=== PATIENT | female | born 1950 | race Caucasian/White ===

== ENCOUNTER 2021-02-09 10:29 | Outpatient (REF) | payer MEDICARE, SELFPAY | END 2021-02-09 10:30 | disposition home or self-care (01) | LOC: HO.SCI 10:29 | PROVIDERS: Visit Provider Internal Medicine Nephrology | DX: Z13.89 Encounter for screening for other disorder (principal) ==

== ENCOUNTER 2022-01-22 07:34 | Day surgery (SDC) | payer MEDICARE, BC, SELFPAY ==
[2022-01-17 09:14] VITALS: BMI 27.3
--- NOTE | 2022-01-19 09:34 | MHC.SHP ---
Pre-Procedural Eval Section A Date of Service: 01/19/22 The patient is an INPATIENT: No Changes since office visit: No Cold of Flu in the past 2 weeks, No New Medical Problems, No Changes in Medication and No Patient answered all questions The History & Physical has been completed within 30 days and I have reviewed it.: Yes Section B Chief Complaint: Age-related nuclear cataract, right eye Allergies: Allergies Allergy/AdvReac Type Severity Reaction Status Date / Time No Known Allergies Allergy Verified 01/17/22 09:00 Plan Diagnosis/Plan: Unchanged I have reviewed the history and physical and performed a pertinent physical examination on my patient. No changes have occurred unless specified.
[2022-01-22 09:02] VITALS: BP 143/66; PULSE 64; RESP 16; TEMP 36.8; O2SAT 99
[2022-01-22] MEDS: Tetracaine HCl/PF 0.5% Oph Sol 4 ML DROPS 1 DROP EYE-RIGHT (09:05)
[2022-01-22] MEDS: Tropicamide 1 % Ophth Sol 3 ML BTL 1 DROP EYE-RIGHT ×3 (09:05→09:15)
[2022-01-22] MEDS: Phenylephrine HCL 2.5% Oph SoL 2 ML BOTTLE 1 DROP EYE-RIGHT ×3 (09:08→09:18)
[2022-01-22] MEDS: Lactated Ringers 500 ML 50 ML IVCONT (09:18)
--- NOTE | 2022-01-22 09:22 | HO.ANESPROP2 ---
HPI - Anesthesia Eval Consult details Narrative: Right eye cataract [facility] Past Medical History Medical History (Updated 01/17/22 @ 09:16 by Veronica Ross RN) Cataract Elevated cholesterol GERD (gastroesophageal reflux disease) HTN (hypertension) Hx of myocardial infarction Hx of renal calculi Hypothyroidism Pacemaker Family History Family history of problems with anesthesia: No Surgical History Surgical History (Updated 01/17/22 @ 09:00 by Veronica Ross RN) AICD (automatic cardioverter/defibrillator) present Hx of appendectomy Hx of colonoscopy S/P LISHA (total abdominal hysterectomy) History of Problems with Anesthesia: No Social History Social History Are you a primary district manager primary care sales to a significant other at home: No Do you presently have visiting nurse or other home services: No Patient Tobacco Use Status: Former Tobacco user Quit Date: 1988 Tobacco use type: Cigarette Use of substances other than those prescribed or required for medical reasons: No Have you been hit, kicked, punched, or otherwise hurt by someone within the past year? If so, by whom?: No Are you DNR?: No Advance Directives: No Advance Directives Information Provided: Yes Advance Directives on File: No Recently lost weight without trying: No Meds Allergies Allergy/AdvReac Type Severity Reaction Status Date / Time No Known Allergies Allergy Verified 01/17/22 09:00 Active Medications: Current Medications Lactated Ringer's (Lr) 500 mls @ 50 mls/hr IVCONT .Q10H IRVIN Last Admin: 01/22/22 09:18 Dose: 50 mls/hr Documented by: Povidone Iodine (Povidone Iodine 5 % Oph Soln 30 Ml Bottle) 1 appl EYE-RIGHT PREOP PRN PRN Reason: Pre-Op Surgical Implant Prophy Home Medications Medication Instructions Recorded Confirmed Last Taken Type Calcarb 600 With Vitamin D PO DAILY 01/17/22 Unknown History apixaban 5 mg tablet (Eliquis) 1 tab PO BID 01/17/22 01/17/22 Unknown History furosemide 40 mg tablet 1 tab PO DAILY 01/17/22 01/17/22 Unknown History methimazole 5 mg tablet 2.5 mg PO .MON-SAT-Sat01/17/22 01/17/22 01/22/22 History metoprolol succinate 100 mg 1.5 tab PO DAILY 01/17/22 01/17/2201/22/22 History tablet,extended release 24 hr multivitamin 1 tab PO DAILY 01/17/22 01/17/22 Unknown History pantoprazole 40 mg tablet,delayed 1 tab PO DAILY 01/17/22 01/17/22 01/22/22 History release pravastatin 40 mg tablet 1 tab PO DAILY 01/17/22 01/17/22 Unknown History sacubitril 24 mg-valsartan 26 mg 1 tab PO Q12H 01/17/22 01/17/22 01/22/22 History tablet (Entresto) spironolactone 25 mg tablet 1 tab PO DAILY 01/17/22 01/17/22 Unknown History Exam Exam Date and Time: January 22, 2022921 Height,Weight and Vital Signs: Height 5 ft Weight 63.503 kg Last Vital Signs Temp 98.3 F 01/22/22 09:02 Pulse 64 01/22/22 09:02 Resp 16 01/22/22 09:02 BP 143/66 H 01/22/22 09:02 Pulse Ox 99 01/22/22 09:02 Airway Mallampati Class: II TM Dist: >3cm Neck ROM: Full Loose/Missing/Broken Teeth: No Heart: rrr+s1s2 Lungs: cta b/l Assessment and Plan Assessment Anesthesia Assessment: Chart Reviewed Final Anesthetic Review Family History of Problems with Anesthesia: No History of Problems with Anesthesia: No NPO: Yes ASA Class: III Final Preanesthetic Review: No Changes in Pt Med Stat, Meds/Allgs Chart Reviewed, Consent Obtained/Reviewed and Anes Risks/Benef Reviewed Patient Risk: Intermediate Procedure Risk: Low Assessment/Block/Sedation in SS: Assess/Block/Sedation-SS Anesthetic Plan Anesthetic Plan: MAC: and Agree w/ Assess. and Plan Disposition: Standard PACU
--- NOTE | 2022-01-22 09:32 | HO.PNOPHT ---
Ophthalmology Procedure Procedure Date of Service: 01/22/22 Ophthalmology Viscoelastic: Healjuju Leit Dual Pack Pro Ophthalmology Lenses: TECNIS [id number] (19.5) Procedure Notes: PREOPERATIVE DIAGNOSIS: Decreased visual acuity right eye secondary to cataract POSTOPERATIVE DIAGNOSIS: Same PROCEDURE: Right cataract extraction with intraocular lens insertion SURGEON: Stanley Miranda M.D. ANESTHESIA: Topical/MAC ESTIMATED BLOOD LOSS: None COMPLICATIONS: None After obtaining informed consent, the patient was brought to the operating room suite and placed in the supine position. After adequate sedation per anesthesia, topical drops of Tetracaine were given to the right eye. The eye was then prepped and draped in the usual sterile fashion. The operating room microscope was then positioned over the operative eye and a lid speculum placed. A paracentesis was created. Viscoelastic was then instilled into the anterior chamber. A three plane incision was then created temporally, utilizing a 2.85 mm keratome. Capsulotomy forceps were then utilized to create a circular tear capsulotomy. Hydrodissection and hydrodelineation were carried out until adequate mobilization of the nucleus occurred. Phacoemulsification was then utilized to remove the dense central nucleus followed by removal of the cortical material utilizing the automated aspiration irrigation unit. Viscoelastic was instilled into the posterior capsular bag followed by placement of a posterior chamber intraocular lens without difficulty. The residual Viscoelastic was then removed utilizing the automated IA machine. The wound was checked and found to be watertight. The patient tolerated the procedure well and the lid speculum was removed. Intracameral injection of Vigamox 0.1 mL followed by a subtenon injection of Kenalog-40 0.2 mL were administered. The patient will be seen in the a.m.
[2022-01-22 09:53] VITALS: BP 114/46; PULSE 60; RESP 12; TEMP 36.4; O2SAT 100
== END 2022-01-22 10:06 ==
LOC: HO.SSS 07:35
PROVIDERS: PCP Family Medicine; Visit Provider Ophthalmology
PROC: (CPT 66985; principal; 2022-01-22 09:40)
DX: H25.11 Age-related nuclear cataract, right eye (principal); H52.4 Presbyopia; H40.1131 Primary open-angle glaucoma, bilateral, mild stage; I10 Essential (primary) hypertension; I48.91 Unspecified atrial fibrillation; E05.00 Thyrotoxicosis with diffuse goiter without thyrotoxic crisis or storm; E78.00 Pure hypercholesterolemia, unspecified; Z79.01 Long term (current) use of anticoagulants; Z79.82 Long term (current) use of aspirin; Z79.899 Other long term (current) drug therapy; Z95.810 Presence of automatic (implantable) cardiac defibrillator; Z87.891 Personal history of nicotine dependence
CPT/HCPCS: 66984; J2250; J3010; J3300; V2632

== ENCOUNTER 2022-02-05 09:31 | Day surgery (SDC) | payer MEDICARE, BC, SELFPAY ==
[2022-01-17 09:17] VITALS: BMI 27.3
--- NOTE | 2022-02-01 08:14 | MHC.SHP ---
Pre-Procedural Eval Section A Date of Service: 02/01/22 The patient is an INPATIENT: No Changes since office visit: No Cold of Flu in the past 2 weeks, No New Medical Problems, No Changes in Medication and No Patient answered all questions The History & Physical has been completed within 30 days and I have reviewed it.: Yes Section B Chief Complaint: Age-related nuclear cataract, left eye Allergies: Allergies Allergy/AdvReac Type Severity Reaction Status Date / Time No Known Allergies Allergy Verified 01/17/22 09:00 Plan Diagnosis/Plan: Unchanged I have reviewed the history and physical and performed a pertinent physical examination on my patient. No changes have occurred unless specified.
--- NOTE | 2022-02-02 09:46 | P.CONAN_ITS ---
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 Interrogation on chart Eliquis for afib PMFSH Past Medical History Medical History (Updated 01/17/22 @ 09:16 by Veronica Ross RN) Cataract Elevated cholesterol GERD (gastroesophageal reflux disease) HTN (hypertension) Hx of myocardial infarction Hx of renal calculi Hypothyroidism Pacemaker Family History Family history of problems with anesthesia: No Surgical History Surgical History (Updated 01/17/22 @ 09:00 by Veronica Ross RN) AICD (automatic cardioverter/defibrillator) present Hx of appendectomy Hx of colonoscopy S/P LISHA (total abdominal hysterectomy) History of Problems with Anesthesia: No Social History Social History Are you a primary resident care aid to a significant other at home: No Do you presently have visiting nurse or other home services: No Patient Tobacco Use Status: Former Tobacco user Quit Date: 1988 Tobacco use type: Cigarette Use of substances other than those prescribed or required for medical reasons: No Have you been hit, kicked, punched, or otherwise hurt by someone within the past year? If so, by whom?: No Are you DNR?: No Advance Directives: No Advance Directives Information Provided: Yes Advance Directives on File: No Recently lost weight without trying: No Meds Allergies Allergy/AdvReac Type Severity Reaction Status Date / Time No Known Allergies Allergy Verified 02/05/22 10:18 Home Medications Medication Instructions Recorded Confirmed Last Taken Type Calcarb 600 With Vitamin D PO DAILY 01/17/22 Unknown History apixaban 5 mg tablet (Eliquis) 1 tab PO BID 01/17/22 01/17/22 Unknown History furosemide 40 mg tablet 1 tab PO DAILY 01/17/22 01/17/22 Unknown History methimazole 5 mg tablet 2.5 mg PO .MON-SAT-Sat01/17/22 01/17/22 02/05/22 08:00 History metoprolol succinate 100 mg 1.5 tab PO DAILY 01/17/22 01/17/22 02/05/22 08:00 History tablet,extended release 24 hr multivitamin 1 tab PO DAILY 01/17/22 01/17/22 Unknown History pantoprazole 40 mg tablet,delayed 1 tab PO DAILY 01/17/22 01/17/22 02/05/22 08:00 History release pravastatin 40 mg tablet 1 tab PO DAILY 01/17/22 01/17/22 Unknown History sacubitril 24 mg-valsartan 26 mg 1 tab PO Q12H 01/17/22 01/17/22 02/05/22 08:00 History tablet (Entresto) spironolactone 25 mg tablet 1 tab PO DAILY 01/17/22 01/17/22 Unknown History Exam Exam Date and Time: February 02, 2022 0946 Height,Weight and Vital Signs: Height 5 ft Weight 63.503 kg Assessment and Plan Assessment Anesthesia Assessment: Chart Reviewed Final Anesthetic Review Family History of Problems with Anesthesia: No History of Problems with Anesthesia: No Documented by User: Stanford Winchester MD 02/05/22 10:30 [facility] Past Medical History Medical History (Updated 01/17/22 @ 09:16 by Veronica Ross RN) Cataract Elevated cholesterol GERD (gastroesophageal reflux disease) HTN (hypertension) Hx of myocardial infarction Hx of renal calculi Hypothyroidism Pacemaker Surgical History Surgical History (Updated 01/17/22 @ 09:00 by Veronica Ross RN) AICD (automatic cardioverter/defibrillator) present Hx of appendectomy Hx of colonoscopy S/P LISHA (total abdominal hysterectomy) Social History Social History Are you a primary resident care aid to a significant other at home: No Do you presently have visiting nurse or other home services: No Patient Tobacco Use Status: Former Tobacco user Quit Date: 1988 Tobacco use type: Cigarette Use of substances other than those prescribed or required for medical reasons: No Have you been hit, kicked, punched, or otherwise hurt by someone within the past year? If so, by whom?: No Are you DNR?: No Advance Directives: No Advance Directives Information Provided: Yes Advance Directives on File: No Recently lost weight without trying: No Meds Allergies Allergy/AdvReac Type Severity Reaction Status Date / Time No Known Allergies Allergy Verified 02/05/22 10:18 Home Medications Medication Instructions Recorded Confirmed Last Taken Type Calcarb 600 With Vitamin D PO DAILY 01/17/22 Unknown History apixaban 5 mg tablet (Eliquis) 1 tab PO BID 01/17/22 01/17/22 Unknown History furosemide 40 mg tablet 1 tab PO DAILY 01/17/22 01/17/22 Unknown History methimazole 5 mg tablet 2.5 mg PO .SAT-SAT-Sat01/17/22 01/17/22 02/05/22 08:00 History metoprolol succinate 100 mg 1.5 tab PO DAILY 01/17/22 01/17/22 02/05/22 08:00 History tablet,extended release 24 hr multivitamin 1 tab PO DAILY 01/17/22 01/17/22 Unknown History pantoprazole 40 mg tablet,delayed 1 tab PO DAILY 01/17/22 01/17/22 02/05/22 08:00 History release pravastatin 40 mg tablet 1 tab PO DAILY 01/17/22 01/17/22 Unknown History sacubitril 24 mg-valsartan 26 mg 1 tab PO Q12H 01/17/22 01/17/22 02/05/22 08:00 History tablet (Entresto) spironolactone 25 mg tablet 1 tab PO DAILY 01/17/22 01/17/22 Unknown History Exam Airway Mallampati Class: II TM Dist: >3cm Neck ROM: Full Loose/Missing/Broken Teeth: No Heart: rrr+s1s2 Lungs: cta b/l Assessment and Plan Assessment Anesthesia Assessment: Anesthesia Plan Discussed Final Anesthetic Review NPO: Yes ASA Class: III Final Preanesthetic Review: No Changes in Pt Med Stat, Meds/Allgs Chart Reviewed, Consent Obtained/Reviewed and Anes Risks/Benef Reviewed Patient Risk: Intermediate Procedure Risk: Low Assessment/Block/Sedation in SS: Assess/Block/Sedation-SS Anesthetic Plan Anesthetic Plan: MAC: and Agree w/ Assess. and Plan Disposition: Standard PACU
[2022-02-05] MEDS: Tetracaine HCl/PF 0.5% Oph Sol 4 ML DROPS 1 DROP EYE-LEFT (10:27)
[2022-02-05] MEDS: Tropicamide 1 % Ophth Sol 3 ML BTL 1 DROP EYE-LEFT ×3 (10:28→10:40)
[2022-02-05] MEDS: Phenylephrine HCL 2.5% Oph SoL 2 ML BOTTLE 1 DROP EYE-LEFT ×3 (10:32→10:44)
[2022-02-05] MEDS: Lactated Ringers 500 ML 50 ML IV (10:43)
[2022-02-05 10:44] VITALS: BP 127/66; PULSE 60; RESP 16; TEMP 36.7; O2SAT 98
--- NOTE | 2022-02-05 11:58 | HO.PNOPHT ---
Ophthalmology Procedure Procedure Date of Service: 02/05/22 Ophthalmology Viscoelastic: Healon Duet Dual Pack Pro Ophthalmology Lenses: TECJOSELITO [id number] (20) Procedure Notes: PREOPERATIVE DIAGNOSIS: Decreased visual acuity left eye secondary to cataract POSTOPERATIVE DIAGNOSIS: Same PROCEDURE: Left cataract extraction with intraocular lens insertion SURGEON: Stanley Miranda M.D. ANESTHESIA: Topical/MAC ESTIMATED BLOOD LOSS: None COMPLICATIONS: None After obtaining informed consent, the patient was brought to the operation room suite and placed in the supine position. After adequate sedation per anesthesia, topical drops of Tetracaine were given to the left eye. The eye was then prepped and draped in the usual sterile fashion. The operating room microscope was then positioned over the operative eye and a lid speculum placed. A paracentesis was created. Viscoelastic was then instilled into the anterior chamber. A three plane incision was then created temporally, utilizing a 2.85 mm keratome. Capsulotomy forceps were then utilized to create a circular tear capsulotomy. Hydrodissection and hydrodelineation were carried out until adequate mobilization of the nucleus occurred. Phacoemulsification was then utilized to remove the dense central nucleus followed by removal of the cortical material utilizing the automated aspiration irrigation unit. Viscoat elastic was instilled into the posterior capsular bag followed by placement of a posterior chamber intraocular lens without difficulty. The residual Viscoat elastic was then removed utilizing the automated IA machine. The wound was check and found to be watertight. The patient tolerated the procedure well and the lid speculum was removed. Intracameral injection of Vigamox 0.1 mL followed by a subtenon injection of Kenalog-40 0.2 mL were administered. The patient will be seen in the a.m.
[2022-02-05 12:20] VITALS: BP 114/69; PULSE 60; RESP 16; TEMP 36.2; O2SAT 98
== END 2022-02-05 12:42 | disposition home or self-care (01) ==
PROVIDERS: PCP Family Medicine; Visit Provider Ophthalmology
PROC: (CPT 66985; principal; 2022-02-05 12:10)
DX: H25.12 Age-related nuclear cataract, left eye (principal); H40.1131 Primary open-angle glaucoma, bilateral, mild stage; H52.4 Presbyopia; I10 Essential (primary) hypertension; E05.00 Thyrotoxicosis with diffuse goiter without thyrotoxic crisis or storm; E78.00 Pure hypercholesterolemia, unspecified; I48.91 Unspecified atrial fibrillation; Z79.01 Long term (current) use of anticoagulants; Z95.810 Presence of automatic (implantable) cardiac defibrillator; Z87.891 Personal history of nicotine dependence; Z79.899 Other long term (current) drug therapy
CPT/HCPCS: 66984; J2250; J3010; J3300; V2632